=== PATIENT | female | born 1975 | race Caucasian/White ===

== ENCOUNTER → 2016-12-06 | Outpatient (CLI) | payer OTHER | LOC: MC.RAD 10:54 | DX: Z12.31 Encounter for screening mammogram for malignant neoplasm of breast (principal) ==

== ENCOUNTER → 2019-08-21 | Outpatient (CLI) | payer OTHER | LOC: MC.RAD 10:56 | DX: N63.20 Unspecified lump in the left breast, unspecified quadrant (principal) | CPT/HCPCS: G0279 ==

== ENCOUNTER 2021-08-18 07:53 | Day surgery (SDC) | payer OTHER ==
[~2021-08-18] VITALS: Ht 160 cm; Wt 74.3 kg
[2021-08-18 08:18] VITALS: BP 110/74; PULSE 63; TEMP 97.3
[2021-08-18] MEDS ORDERED: ASPIRIN 81M81 MG/TA2 PO (08:18)
[2021-08-18 09:55] VITALS: BP 111/64; PULSE 60; TEMP 97.5
--- NOTE | 2021-08-18 09:55 | NUR ---
PATIENT RETURNED TO ROOM 6 VIA CART. ASSIST X 2 TO CHAIR WITHOUT DIFFICULTY. PATIENT REQUESTS CRANBERRY JUICE AND A MUFFIN. AT BEDSIDE.
[2021-08-18 10:10] VITALS: BP 112/63; PULSE 69
[2021-08-18 10:25] VITALS: BP 100/61; PULSE 69
--- NOTE | 2021-08-18 10:25 | NUR ---
PATIENT DONE SPEAKING WITH DOCTOR AND IS READY TO GO HOME. I REMOVED HER IV AND SHE IS GETTING DRESSED. AT BEDSIDE.
== END 2021-08-18 10:50 | disposition home or self-care (01) ==
LOC: SDCO 07:53
DX: Z12.11 Encounter for screening for malignant neoplasm of colon (principal); K63.5 Polyp of colon; K63.89 Other specified diseases of intestine; K64.0 First degree hemorrhoids; K62.89 Other specified diseases of anus and rectum
CPT/HCPCS: J3010; J7120